=== PATIENT | male | born 1975 | race Caucasian/White ===

== ENCOUNTER 2024-12-15 10:15 | Outpatient (CLI) | payer SELFPAY ==
--- NOTE | ~2024-12-15 | XR_ITS ---
[id number], XR thoracic spine 2V 12/15/2024 11:02 Indication: Back pain Procedure: 4 views cervical spine and 4 views thoracic spine Comparison: No prior studies for comparison. Findings: No fracture or traumatic malalignment. No prevertebral or paraspinal soft tissue. There is levoscoliosis centered in the upper thoracic spine at approximately T4-5. Impression: 1: No acute abnormality of the cervical or thoracic spine. 2: Mild levoscoliosis of the cervicothoracic spine. Reviewed, dictated and finalized at location A. Impression: 1: No acute abnormality of the cervical or thoracic spine. 2: Mild levoscoliosis of the cervicothoracic spine. Impression: 1: No acute abnormality of the cervical or thoracic spine. 2: Mild levoscoliosis of the cervicothoracic spine.
== END 2024-12-15 10:16 | disposition home or self-care (01) ==
PROVIDERS: PCP Chiropractor; Visit Provider Chiropractor
DX: M41.83 Other forms of scoliosis, cervicothoracic region (principal)
CPT/HCPCS: 72040; 72070

== ENCOUNTER 2025-03-24 13:28 | Emergency (ER) | payer SELFPAY ==
--- NOTE | ~2025-03-24 | XR_ITS ---
Clinical history:Laceration EXAM:X-ray finger first left minimum 2 views TECHNIQUE:3 images of the left thumb were obtained. Comparisons:None available FINDINGS: Bandage material is present which limits evaluation. Displaced fractures of the distal third of the thumb with adjacent soft tissue swelling. There are a few tiny radiodensities in the soft tissues adjacent to the tuft of the thumb which may represent tiny fractures, however, radiopaque foreign bodies are possible. Tiny minimally displaced avulsion fracture of the base of the distal phalanx of the thumb. IMPRESSION: 1.Displaced fractures of the distal third of the thumb with adjacent soft tissue swelling. There are a few tiny radiodensities in the soft tissues adjacent to the tuft of the thumb which may represent tiny fractures, however, radiopaque foreign bodies are possible. 2.Tiny minimally displaced avulsion fracture of the base of the distal phalanx of the thumb. Reviewed, dictated and finalized at location Q. ITALIST IMPRESSION: 1.Displaced fractures of the distal third of the thumb with adjacent soft tissu e swelling. There are a few tiny radiodensities in the soft tissues adjacent to the tuft of the thumb which may represent tiny fractures, however, radiopaque foreign bodies are possible. 2.Tiny minimally displaced avulsion fracture of the base of the distal phalanx of the thumb.
[2025-03-24 13:28] VITALS: BP 240/138; PULSE 102; RESP 20; TEMP 36.6; O2SAT 99
--- NOTE | 2025-03-24 14:52 | ED_ITS ---
HPI - Wound/Laceration General Chief Complaint: Wound/Laceration <Chacha Wang PA-C - Last Filed: 03/25/25 10:20> Stated Complaint: thumb lac <COLE Clancy Last Filed: 03/25/25 10:20> Time Seen by Provider: 03/24/25 14:53 <Chacha Wang PA-C - Last Filed: 03/25/25 10:20> Focused HPI: This is a 49 year old male that presents to the ER for laceration to the left 5th finger. Sustained via table saw just prior to arrival. . Reports he is up to date on tetanus. GENERAL: Well-appearing, well-nourished, and in no acute distress. HEAD: Normocephalic, atraumatic. CHEST: Clear to auscultation. ?No respiratory distress. HEART: Regular rate and rhythm.? NEURO: ?Alert and oriented x3. Patient screened in triage and initial orders placed.? ?Additional care and disposition to be based upon?diagnostic testing and treatment. <Chacha Wang PA-C - Last Filed: 03/25/25 10:20> History of Present Illness HPI narrative: Agree with HPI. <Andre Taylor DO - Last Filed: 03/24/25 22:42> Related Data Allergies/Adverse Reactions: Allergies Allergy/AdvReac Type Severity Reaction Status Date / Time amoxicillin AdvReac Intermediate Hives Verified 03/24/25 16:21 <Chacha Wang PA-C - Last Filed: 03/25/25 10:20> Review of Systems Review of Systems: Gen.: Denies fevers or chills Eyes: Denies eye pain or visual change ENT: Denies congestion Respiratory: Denies shortness of breath or cough CV: Denies chest pain or palpitations GI: Denies abdominal pain nausea, emesis or diarrhea denies burning, urgency, frequency or hematuria Musculoskeletal: Denies back pain or muscle pain Neuro: Denies numbness, tingling, weakness or focal weakness Skin: Denies rash Except as documented, all other systems reviewed and negative <Andre Taylor DO - Last Filed: 03/24/25 22:42> Exam Narrative: APPEARANCE: No acute distress, nontoxic, resting in bed HEENT: Normocephalic, atraumatic, OMM RESPIRATORY: No respiratory distress CARDIOVASCULAR: Appears well perfused ABDOMINAL: Nondistended MUSCULOSKELETAl: 3 cm laceration to the distal 3rd of the left thumb that begins on the palmar aspect of the thumb and wraps to the lateral nail bed, bleeding controlled at this time. Neurovascularly intact. There is moderate amount of swelling NEURO: Awake and alert. SKIN:: Warm, dry. As above. PSYCHIATRIC: Normal affect/mood, <DO Shabnam Mann Last Filed: 03/24/25 22:42> Course Vital Signs Vital signs: Vital Signs Temperature 97.8 F 03/24/25 13:28 Pulse Rate 102 H 03/24/25 13:28 Respiratory Rate 20 03/24/25 13:28 Blood Pressure 240/138 H 03/24/25 13:28 Pulse Oximetry 99 03/24/25 13:28 Oxygen Delivery Room Air 03/24/25 13:28 Temperature 98.0 F 03/24/25 16:20 Pulse Rate 95 03/24/25 16:20 Respiratory Rate 18 03/24/25 16:20 Blood Pressure 240/150 H 03/24/25 16:20 Pulse Oximetry 100 03/24/25 16:20 Oxygen Delivery Room Air 03/24/25 16:07 <Chacha Wang PA-C - Last Filed: 03/25/25 10:20> Vital Signs Temperature 97.8 F 03/24/25 13:28 Pulse Rate 102 H 03/24/25 13:28 Respiratory Rate 20 03/24/25 13:28 Blood Pressure 240/138 H 03/24/25 13:28 Pulse Oximetry 99 03/24/25 13:28 Oxygen Delivery Room Air 03/24/25 13:28 Temperature 98.0 F 03/24/25 16:20 Pulse Rate 95 03/24/25 16:20 Respiratory Rate 18 03/24/25 16:20 Blood Pressure 240/150 H 03/24/25 16:20 Pulse Oximetry 100 03/24/25 16:20 Oxygen Delivery Room Air 03/24/25 16:07 <DO Shabnam Mann Last Filed: 03/24/25 22:42> Procedures Laceration Laceration 1: Date: 03/24/25 <DO Shabnam Mann Last Filed: 03/24/25 22:42> Time: 16:00 <Andre Taylor Last Filed: 03/24/25 22:42> Site: hand <Andre Taylor Last Filed: 03/24/25 22:42> Side (If applicable): left <Andre Taylor Last Filed: 03/24/25 22:42> Size (cm): 3 <Andre Taylor Last Filed: 03/24/25 22:42> Description: linear <Andre Taylor Last Filed: 03/24/25 22:42> Depth: simple, single layer <Andre Taylor Last Filed: 03/24/25 22:42> Local Anesthetic: lidocaine 2% <Andre Taylor Last Filed: 03/24/25 22:42> Amount of anesthesia used (mL): 5 <Andre Taylor Last Filed: 03/24/25 22:42> Pre-repair: irrigated <Andre Taylor Last Filed: 03/24/25 22:42> ====== Skin Level ======: Skin layer closed with: prolene <Andre Taylor Last Filed: 03/24/25 22:42> Size (cm): 5-0 <Andre Taylor Last Filed: 03/24/25 22:42> Number of sutures: 5 <Andre Taylor Last Filed: 03/24/25 22:42> Technique: simple, interrupted (Loosely approximated) <Andre Taylor Last Filed: 03/24/25 22:42> ====== Subcutaneous Layer ======: ====== Muscle Layer ======: ====== Tendon Layer ======: Nerve Block Nerve Block 1: Nerve block date: 03/24/25 <Andre Taylor Last Filed: 03/24/25 22:42> Nerve block time: 16:00 <Andre Taylor Last Filed: 03/24/25 22:42> Local Anesthetic: lidocaine 2% <Andre Taylor, DO - Last Filed: 03/24/25 22:42> Amount of anesthesia used (mL): 5 <Andre Taylor, DO - Last Filed: 03/24/25 22:42> Side: left <Andre Taylor - Last Filed: 03/24/25 22:42> Nerve Blocks: digital <Andre Taylor - Last Filed: 03/24/25 22:42> Procedure Successful: Yes <Andre Naranjoefra - Last Filed: 03/24/25 22:42> Patient Tolerated Procedure: well <Andre Taylor, DO - Last Filed: 03/24/25 22:42> Complications: none <Andre Taylor, - Last Filed: 03/24/25 22:42> MDM - Wound/Laceration MDM Narrative Medical decision making narrative: 49-year-old male Presenting for left thumb injury after cutting it with a table saw. On initial evaluation patient was in no acute distress afebrile. Patient noted to be hypertensive at 250/150. Differentials include but are not limited to: Vascular injury, nerve injury, fracture, laceration Notable exam findings: 3 cm laceration to the left thumb with involvement of the nailbed Notable imaging findings: X-ray left hand revealed displaced fracture of the distal 3rd of the thumb with adjacent soft tissue swelling as well as a few tiny radiodensities in the soft tissues that could represent tiny fractures versus foreign bodies. Also a noted tiny minimally displaced avulsion fracture of the base of the distal phalanx of the thumb Patient does note that he experiences white coat hypertension. He was asymptomatic from a hypertension standpoint, had no headache, chest pain, shortness of breath, abdominal pain. Patient noted to be updated on Tdap. Given the extent of the injury, patient would benefit from Hand surgery evaluation. I Spoke with Dr. Castro, hand surgery resident at [facility], discussed with Attending Dr. Norris who will accept the patient in ED to ED transfer, recommends placing some loose nylon sutures and placing in a thumb spica splint. Laceration was loosely approximated as above, patient tolerated procedure well. Splint was placed by the emergency department truck service technician under my supervision. Patient was given Ancef IM. The patient was neurovascularly intact both pre-and post procedure. Patient was transferred to the [facility] ED in a stable condition by POV. <Andre Taylor - Last Filed: 03/24/25 22:42> Medical Records Attestation: I reviewed the patient's medical records. <Andre Taylor Last Filed: 03/24/25 22:42> Imaging Data Attestation: I personally reviewed and interpreted this imaging study as follows: <Andre Walkercasey Last Filed: 03/24/25 22:42> Radiologist's impression: Impressions Finger X-Ray 03/24/25 15:15 IMPRESSION: 1.Displaced fractures of the distal third of the thumb with adjacent soft tissue swelling. There are a few tiny radiodensities in the soft tissues adjacent to the tuft of the thumb which may represent tiny fractures, however, radiopaque foreign bodies are possible. 2.Tiny minimally displaced avulsion fracture of the base of the distal phalanx of the thumb. <Andre Taylor Last Filed: 03/24/25 22:42> Discharge Plan Discharge Clinical Impression: Open fracture of left thumb, Contact with powered saw as cause of accidental injury, Laceration, Nailbed laceration, finger <Chacha Wang PA-C - Last Filed: 03/25/25 10:20> Patient Disposition: Acute [facility] Hospital <Chacha aWng PA-C - Last Filed: 03/25/25 10:20> Condition: Stable <Chacha Wang PA-C - Last Filed: 03/25/25 10:20> Patient Language: Yi <COLE Clanyc Last Filed: 03/25/25 10:20> Follow-up/Referrals: Desean,Bill Tang DC, [facility] [Primary Care Provider] <COLE Clancy Last Filed: 03/25/25 10:20>
[2025-03-24 16:07] VITALS: BP 240/150; PULSE 95; RESP 18; TEMP 36.7; O2SAT 100
[2025-03-24 16:20] VITALS: BP 240/150; PULSE 95; RESP 18; TEMP 36.7; O2SAT 100
[2025-03-24] MEDS: WATER, STERILE FOR INJECTION 10 ML VIAL XX (18:52)
--- OUTSIDE RECORDS SUMMARY | 2025-03-25 00:42 | XMS_ITS | Encounter Summary ---
Author Organization [facility] Healthcare Address [address] [place] [address] Care Team Providers Care Utility Helicopter Repairer Name Role Phone No, Physician Primary Care Provider [phone] Reason for Visit * Reason Comments Hand Injury Encounter Details Date Type Department Care Team ([facility] st Contact Info) Description 03/25/2025 12:42 AM MOLD RUNNER - 03/25/2025 3:07 AM MOLD RUNNER Emergency [facility] Emergency Department [address] [place] [address] Kim Min MD [address] [place] [address] Open displaced fracture of distal phalanx of left thumb, initial encounter (Primary Dx); Hypertension, unspecified type Discharge Disposition: Discharge to home or self care Social History Tobacco Use Types Packs/Day Years Used Date Smoking Tobacco: Never Assessed Personal Safety Answer Date Recorded Have you ever been in or are you currently in a harmful physical or emotional relationship or is someone making you feel afraid or unsafe? Denies 03/24/2025 Sex and Gender Information Value Date Recorded Sex Assigned at Not on file Legal Sex Male 11:46 AM CDT Gender Identity Not on file Sexual Orientation Not on file documented as of this encounter Last Filed Vital Signs Vital Sign Reading Time Taken Comments Blood Pressure 212/122 03/25/2025 3:06 AM MOLD RUNNER Pulse 75 03/25/2025 3:06 AM MOLD RUNNER Temperature 36.7 C (98 F) 03/24/2025 8:00 PM MOLD RUNNER Respiratory Rate 18 03/24/2025 8:00 PM MOLD RUNNER Oxygen Saturation 100% 03/25/2025 3:06 AM MOLD RUNNER Inhaled Oxygen Concentration - - Weight 106.6 kg (235 lb) 03/24/2025 8:00 PM MOLD RUNNER Height 188 cm (6' 2) 03/24/2025 8:00 PM MOLD RUNNER Body Mass Index 30.17 03/24/2025 8:00 PM MOLD RUNNER documented in this encounter Functional Status * Fall Risk Assessment Tool - MEDFRAT Question Answer Date of Assessment Author Prior Fall Event (Autopopulated from EMR) None found 03/24/2025 8:03 PM Shaquille Stevens RN History of falling in last 3 months, including since admission 0 03/24/2025 8:03 PM Alexus Stevens RN Confusion or disorientation 0 03/24/2025 8: 03 PM Aelxus Stevens RN Intoxicated or sedated 0 03/24/2025 8:03 PM Alexus Stevens RN Impaired gait 0 03/24/2025 8:03 PM Alexus Pelletier RN Mobility assist device used 0 03/24/2025 8: 03 PM Alexus Stevens RN Altered elimination 0 03/24/2025 8:03 PM CS Alexus Silva RN Fall risk score: (1-2 low risk), (3-4 moderate risk), (5 or more high risk) 0 03/24/2025 8:03 PM Alexus Stevens RN documented as of this encounter Discharge Instructions * Discharge Instructions* Kim Min MD - 03/25/2025 1:59 AM MOLD RUNNER You were seen tonight for a thumb fracture and overlying laceration. This is repaired by a plastic surgeon. Please keep the splint in place and keep your hand elevated. If you have worsening pain notcontrolled with medications prescribed, any fever or chills, redness extending down in the wrist, or any noted drainage, please call the Plastic surgery Clinic or return to the emergency department. You are also noted to be very hypertensive in the emergency department. I have prescribed you a medication called amlodipine which should reduce your blood pressure for the next several days. It is critical that you follow up with the primary care physician and monitor your blood pressure at home anterior able to do so. Please continue to take this medication as prescribed. Do not take this medication if your blood pressure is less than 120 systolic (top number). RUNNER documented in this encounter Medications at Time of Discharge amLODIPine (NORVASC) 10 mg tablet Take 1 tablet (10 mg total) by mouth daily 30 tablet 1 03/25/2025 03/25/2026 oxyCODONE (ROXICODONE) 5 mg immediate release tabletIndications :Pain Take 1 tablet (5 mg total) by mouth every 4 (four) hours as needed for pain 8 tablet 03/25/2025 sulfamethoxazole- trimethoprim (BACTRIM) 800-160 mg per tablet Take 2 tablets by mouth 2 (two) times a day for 7 days 28 tablet 03/25/2025 04/01/2025 documented as of this encounter Ordered Prescriptions Prescription Sig Dispense Quantity Refills Last Filled Start Date End Date sulfamethoxazole-t rimethoprim (BACTRIM) 800-160 mg per tablet Take 2 tablets by mouth 2 (two) times a day for 7 days 28 tablet 03/25/2025 5 oxyCODONE (ROXICODONE) 5 mg immediate release tabletIndications: Pain Take 1 tablet (5 mg total) by mouth every 4 (four) hours as needed for pain 8 tablet 03/25/2025 amLODIPine (NORVASC) 10 mg tablet Take 1 tablet (10 mg total) by mouth daily 30 tablet 1 03/25/2025 6 amLODIPine (NORVASC) 10 mg tablet Take 1 tablet (10 mg total) by mouth daily 30 tablet 03/25/2025 5 oxyCODONE (ROXICODONE) 5 mg immediate release tabletIndications: Pain Take 1 tablet (5 mg total) by mouth every 4 (four) hours as needed for pain 8 tablet 03/25/2025 5 sulfamethoxazole-t rimethoprim (BACTRIM) 800-160 mg per tablet Take 2 tablets by mouth 2 (two) times a day for 7 days 28 tablet 03/25/2025 5 documented in this encounter Discharge Disposition Disposition Code Departure Means Destination Comment s Discharge to home or self care documented in this encounter Consult Notes * Jaden Perez MD - 03/25/2025 3:03 AM CSTAssociated Order(s): IP CONSULT TO PLASTIC SURGERY Plastic Surgery Consult - HAND March 25, 2025 3:03 AM Reason for Consult: left thumb open fx from table saw Requesting Provider: ED Patient (home) Subjective Gilberto Kramer is a 49 y.o. male with chief complaint of LEFT thumb open distal phalanx fx. HPI: 49M RHD s/p table saw injury to L thumb with hand XR: Left thumb distal phalanx fracture with intact radial cortex. Seen at OSH and transferred to [facility] after washout and suture approximation. Hemostatic on arrival. BP elevated to 200s during examination. PMH: untreated HTN, no relevant PSH. SH: nonsmoker, social EtoH, works as contractor. No past medical history on file. No past surgical history on file. Prior to Admission medications Medication Sig Start Date End Date Taking? Authorizing Provider amLODIPine (NORVASC) 10 mg tablet Take 1 tablet (10 mg total) by mouth daily 03/25/25 03/25/26 Kim Min MD oxyCODONE (ROXICODONE) 5 mg immediate release tablet Take 1 tablet (5 mg total) by mouth every 4 (four) hours as needed for pain 03/25/25 Kim Min MD sulfamethoxazole-trimethoprim (BACTRIM) 800-160 mg per tablet Take 2 tablets by mouth 2 (two) timesa day for 7 days 03/25/25 04/01/25 Kim Min MD No Known Allergies Social History Tobacco Use Smoking status: Not on file Smokeless tobacco: Not on file Substance and Sexual Activity Drug use: Not on file Sexual activity: Not on file Alcohol Use: Not on file No family history on file. Review of Systems: As per HPI, otherwise 10 point review of systems negative Objective Vitals: 24hr Min/Max: Temp Min: 36.7 ??C (98 ??F) Max: 36.7 ??C (98 ??F) Pulse Min: 74 Max: 97 BP Min: 226/130 Max: 252/151 Resp Min: 18 Max: 18 SpO2 Min: 97 % Max: 100 % Most Recent: Vitals: 03/24/25200403/24/25 2201 03/24/25 2345 03/25/25 0215 BP: (!) 240/150 (!) 248/148 (!) 252/151 (!) 226/130 Pulse: 82 85 74 Resp: Temp: TempSrc: SpO2: 98% 98% 100% Weight: Height: Physical Exam: General: NAD, alert Respiratory: Nonlabored breathing on RA LUE: LEFT thumb with 4cm volar laceration approximated with prolene sutures. Thumb WWP, cap refill 2 sec. Fires EPL, FPL, APL. Palpable radial/ulnar arteries. Flexion/Extension/Intrinsics intact. SILT median/ulnar/radial. Lab/Radiology/Diagnostic Review: Laboratory review: Lab results in the last 24 hours: No results found for this or any previous visit (from the past 24 hours). Imaging review: I have independently examined the XR image(s). My findings are Left thumb distal phalanx fracture with intact radial cortex Assessment /Plan Gilberto Kramer is a 49 y.o. male who presented with L distal thumb open fracture. PROCEDURE: After documentation of risks and benefits and informed consent, a digital block was performed and the left thumb laceration was irrigated with 1L NS/betadine. The prolene sutures were cut and the lac was reapproximated with 4- 0 monocryl. Xeroform was applied and the thumb was placed in afinger splint. The procedure was well tolerated. PLAN: Nonoperative OK to DC per PRS Bactrim 7d Maintain dressing for 48h, then begin daily hand washing with dressing changes. Maintain splint Elevate left upper extremity NWB left upper extremity Follow up with Plastic Surgery in 1 weeks at [facility], [address]- call [phone] to schedule Jaden Perez MD Discussed with Dr. You, senior resident. If you have questions, please check Amion to find the resident responsible for this patient's care.If uncertain, please call: Saturday-Saturday from 7AM - 5PM please call [phone], , or [phone]. If still unsuccessful, please check CÜR (username OSBALDO) to find the appropriate resident contact. If both are unsuccessful, call [phone] to be directed to the correct Plastic Surgery resident. Weeknights 5PM - 7AM, All day on Weekends, All day on Holidays please call the Sport Intern to find theOn Call Plastic Surgery resident. Cosigned by Alessia Norris MD at 03/25/2025 10:04 AM MOLD RUNNER RUNNER RUNNER documented in this encounter ED Notes * Alexus Law RN - 03/24/2025 8:00 PM CST Pt to ED as level 3 transfer from [facility]. Pt has injury to L thumb from tablesaw. Pt arrives with splint placed at OSH. Pt given Ancef VENUE COORDINATOR. GCS 15. RUNNER documented in this encounter Miscellaneous Notes * ED Pre-Arrival Note - Nancy Carballo RN - 03/24/2025 6:45 PM MOLD RUNNER Pre-Arrival Note Transfering Facility: [facility] Transferring Provider: Claudia SCHUSTER Speciality/Provider Requesting ED to ED Trasnfer: Plastics/Hand - MD Handy Mcneal Reason for Transfer: open fracture HPI: Pt to ED with tablesaw injury to L thumb distal 3rd phalanx. OSH stitched so that segments would stay together and placed in thumb spica per hand . MD Red requesting ancef to be given before departure. Accepting [facility] ED Provider: Teofilo SCHUSTER Accepted Trauma Level: 3 Nancy Carballo RN RUNNER documented in this encounter Plan of Treatment Not on file documented as of this encounter Procedures Procedure Name Priority Date/Time Associated Diagnosis Comments XR HAND LEFT 3 OR MORE VIEWS ED 03/25/2025 12:27 AM MOLD RUNNER documented in this encounter Results * XR Hand Left 3 or More Views (03/25/2025 12:27 AM MOLD RUNNER) Anatomical Region Laterality Modality Upper Extremities, Hand Left Computed Radiography 03/25/2025 12:3 0 AM MOLD RUNNER Impressions 03/25/2025 9:39 AM MOLD RUNNER FINDINGS/IMPRESSION: Acute open comminuted displaced left 1st distal phalanx tuft fracture. Overlying soft tissue swelling. Preserved joint spaces. No retained radiopaque foreign body. Dictated by: Hyun Harley MD The radiology attending physician has personally reviewed this study, and had reviewed and/or edited this written report and agrees with it. Electronically signed by: James Shields M.D. Narrative 03/25/2025 9:39 AM MOLD RUNNER EXAMINATION: XR HAND LEFT 3 OR MORE VIEWS HISTORY: Table saw injury COMPARISON: None available. Procedure Note James Shields MD - 03/25/2025 EXAMINATION: XR HAND LEFT 3 OR MORE VIEWS HISTORY: Table saw injury COMPARISON: None available. IMPRESSION: FINDINGS/IMPRESSION: Acute open comminuted displaced left 1st distal phalanx tuft fracture. Overlying soft tissue swelling. Preserved joint spaces. No retained radiopaque foreign body. Dictated by: Hyun Harley MD The radiology attending physician has personally reviewed this study, and had reviewed and/or edited this written report and agrees with it. Electronically signed by: James Shields M.D. Kim Min MD IMG XR PROCEDURES Fin al Result documented in this encounter Visit Diagnoses Diagnosis Open displaced fracture of distal phalanx of left thumb, initial encounter- Primary Hypertension, unspecified type documented in this encounter Administered Medications Inactive Administered Medications - up to 3 most recent administrations Medication Order MAR Action Action Date Dose Rate Site amLODIPine (NORVASC) tablet 10 mg 10 mg, oral, Once, On Brisa 03/25/25 at 0157, For 1 dose Given 03/25/2025 2:15 AM MOLD RUNNER 10 mg bacitracin 500 unit/gram ointment packet 1 Application 1 Application, topical, Once, On Brisa 03/25/25 at 0155, For 1 dose, Apply to affected area: wound Given 03/25/2025 2:45 AM MOLD RUNNER 1 Application lidocaine (XYLOCAINE) 10 mg/mL (1 %) injection 100 mg 100 mg (10 mL), subcutaneous, Once, On Brisa 03/25/25 at 0208, For 1 dose, Indications: Administration of Local AnesthesiaIndications: Administration of Local Anesthesia Given 03/25/2025 2:45 AM MOLD RUNNER 100 mg Other (Comment) oxyCODONE (ROXICODONE) tablet 5 mg 5 mg, oral, Once, On Brisa 03/25/25 at 0112, For 1 dose, Indications: PainIndications:Pain Given 03/25/2025 1:22 AM MOLD RUNNER 5 mg sulfamethoxazole-trime thoprim (BACTRIM) per tablet 320 mg of trimethoprim 320 mg of trimethoprim, oral, Once, On Brisa 03/25/25 at 0155, For 1 dose, Indications: Skin/Soft Tissue InfectionIndications:S kin/Soft Tissue Infection Given 03/25/2025 2:15 AM MOLD RUNNER 320 mg of trimethoprim documented in this encounter Discontinued Medications Medication Sig Discontinue Reason Start Date End Da te sulfamethoxazole-trimeth oprim (BACTRIM) 800-160 mg per tablet Take 2 tablets by mouth 2 (two) times a day for 7 days 03/25/2025 03/25/2025 oxyCODONE (ROXICODONE) 5 mg immediate release tabletIndications:Pain Take 1 tablet (5 mg total) by mouth every 4 (four) hours as needed for pain 03/25/2025 03/25/2025 amLODIPine (NORVASC) 10 mg tablet Take 1 tablet (10 mg total) by mouth daily 03/25/2025 03/25/2025 documented as of this encounter Active and Recently Administered Medications Times are shown in MOLD RUNNER. Scheduled Medication Order 03/23/2025 03/24/2025 03/25/2025 amLODIPine (NORVASC) tablet 10 mg (COMPLETED) 10 mg, oral, Once, On Brisa 03/25/25 at 0157, For 1 dose 0215 (Given - Provid er: Tootie Alcala RN) bacitracin 500 unit/gram ointment packet 1 Application (COMPLETED) 1 Application, topical, Once, On Brisa 03/25/25 at 0155, For 1 dose, Apply to affected area: wound 0245 (Given - Provid er: Tootie Alcala RN) lidocaine (XYLOCAINE) 10 mg/mL (1 %) injection 100 mg (COMPLETED) 100 mg (10 mL), subcutaneous, Once, On Brisa 03/25/25 at 0208, For 1 dose, Indications: Administration of Local Anesthesia 0245 (Given - Provid er: Tootie Alcala RN) oxyCODONE (ROXICODONE) tablet 5 mg (COMPLETED) 5 mg, oral, Once, On Brisa 03/25/25 at 0112, For 1 dose, Indications: Pain 0122 (Given - Provid er: Tootie Alcala RN) sulfamethoxazole-trimethoprim (BACTRIM) per tablet 320 mg of trimethoprim (COMPLETED) 320 mg of trimethoprim, oral, Once, On Brisa 03/25/25 at 0155, For 1 dose, Indications: Skin/Soft Tissue Infection 0215 (Given - Provid er: Tootie Alcala RN) documented in this encounter Orders Consult Count Last Ordered Date First Orde red Date IP CONSULT TO PLASTIC SURGERY 1 03/25/2025 documented in this encounter Care Teams Utility Helicopter Repairer Relationship Specialty Start Date End Date No, Physician PCP - General 10/23/21 documented as of this encounter
--- OUTSIDE RECORDS SUMMARY | 2025-03-25 12:37 | XMS_ITS | Clinical Summary ---
Author Organization [facility] Address [address] [place] [address] Care Team Providers Care Industrial Rehabilitation Consultant Name Role Phone Unavailable Primary Care Provider Unavailabl e Source Comments [facility],non-owned Affiliates and Associated Physician Practices is amultiple site organization consisting of ambulatory clinics and hospital sitesin [place], [place], [place] and [place]. This disclosure is being madepursuant to the Care Everywhere program and may not contain all information available regarding this patient. Last updated 18.[facility] Social History Tobacco Use Types Packs/Day Years Used Date Smoking Tobacco: Never Assessed Sex and Gender Information Value Date Recorded Sex Assigned at Not on file Legal Sex Male 10:44 AM CDT Gender Identity Not on file Sexual Orientation Not on file Plan of Treatment Health Maintenance Due Date Last Done Comments COLOGUARD (AGES 45-75) - COL ON CA SCREENING 1973 COLON MONITORING 1973 COLONOSCOPY - COLON CA SCREENING 1973 CT COLONOGRAPHY - COLON CA SCREENING 1973 Colorectal Cancer Screening 1973 FIT - COLON CA SCREENING 1973 FLEX SIG - COLON CA SCREENING 1973 LIPID TESTING 1973 HIV SCREENING 1988 HEPATITIS C SCREENING 04/24/1991 DTAP/TDAP/TD VACCINES (1 - Tdap) 1992 HEPATITIS B VACCINE (1 of 3 - 19+ 3-dose series) 1992 PNEUMOCOCCAL VACCINE 50+ (1 of 1 - PCV) 2023 ZOSTER VACCINE (1 of 2) 2023 DEPRESSION SCREENING 05/20/2024 COVID-19 VACCINE (1 - 2023-2 5 season) 2025 INFLUENZA VACCINE (#1) 2025 HIB VACCINE Aged Out No longer eligi ble based on patient's age to complete this topic HPV VACCINE Aged Out No longer eligi ble based on patient's age to complete this topic MENINGOCOCCAL (Group B) VACC INE SHARED DECISION-MAKING Aged Out No longer eligibl e based on patient's age to complete this topic MENINGOCOCCAL GROUPS A/C/Y/W VACCINE Aged Out No longer eligible b ased on patient's age to complete this topic
--- OUTSIDE RECORDS SUMMARY | 2025-03-25 15:15 | XMS_ITS | Clinical Summary ---
[facility] Address [address] [place] [address] Care Team Providers Care Supervisor Transferring And Boxing Name Role Phone No, Physician Primary Care Provider [phone] Allergies No known active allergies Medications amLODIPine (NORVASC) 10 mg tablet Take 1 tablet (10 mg total) by mouth daily 30 tablet 1 5 03/25/20 26 Active oxyCODONE (ROXICODONE) 5 mg immediate release tabletIndicati ons:Pain Take 1 tablet (5 mg total) by mouth every 4 (four) hours as needed for pain 8 tablet 5 Active sulfamethoxazo le-trimethopri m (BACTRIM) 800-160 mg per tablet Take 2 tablets by mouth 2 (two) times a day for 7 days 28 tablet 5 04/01/20 25 Active sulfamethoxazo le-trimethopri m (BACTRIM) 800-160 mg per tablet Take 2 tablets by mouth 2 (two) times a day for 7 days 28 tablet 5 03/25/20 25 Discontinued oxyCODONE (ROXICODONE) 5 mg immediate release tabletIndicati ons:Pain Take 1 tablet (5 mg total) by mouth every 4 (four) hours as needed for pain 8 tablet 5 03/25/20 25 Discontinued amLODIPine (NORVASC) 10 mg tablet Take 1 tablet (10 mg total) by mouth daily 30 tablet 5 03/25/20 25 Discontinued Encounters Date Type Department Care Team Description 03/25/2025 12:42 AM BAKER TEST - 03/25/2025 3:07 AM BAKER TEST Emergency [facility] Emergency Department [address] [place] [address] Kim Min MD Open displaced fracture of distal phalanx of left thumb, initial encounter (Primary Dx); Hypertension, unspecified type Discharge Disposition: Discharge to home or self care from Last 3 Months Social History Tobacco Use Types Packs/Day Years [...] on file Sexual Orientation Not on file Last Filed Vital Signs Vital Sign Reading Time Taken Comments Blood Pressure 212/122 03/25/2025 3:06 AM BAKER TEST Pulse 75 03/25/2025 3:06 AM BAKER TEST Temperature 36.7 C (98 F) 03/24/2025 8:00 PM BAKER TEST Respiratory Rate 18 03/24/2025 8:00 PM BAKER TEST Oxygen Saturation 100% 03/25/2025 3:06 AM BAKER TEST Inhaled Oxygen Concentration - - Weight 106.6 kg (235 lb) 03/24/2025 8:00 PM BAKER TEST Height 188 cm (6' 2) 03/24/2025 8:00 PM BAKER TEST Body Mass Index 30.17 03/24/2025 8:00 PM BAKER TEST Plan of Treatment Health Maintenance Due Date Last Done Comments Colon Cancer Screening-Colonoscopy 1973 Depression Screening 1973 Hepatitis C Screening 1973 Prostate Cancer Screening-PSA 1973 Hepatitis B Screening 1991 Regular Well Visit/Exam 18-64 1991 Zoster Vaccine (1 of 2) 2023 Influenza Vaccine (#1) 2025 DTaP/Tdap/Td Vaccine (2 - Td or Tdap) 07/16/2027 07/16/2017 Pneumococcal vaccine <65 Aged Out No longer eligible based on patient's age to complete this topic Procedures Procedure Name Priority Date/Time Associated Diagnosis Comments XR HAND LEFT 3 OR MORE VIEWS ED 03/25/2025 12:27 AM BAKER TEST from Last 3 Months Results * XR Hand Left 3 or More Views (03/25/2025 12:27 AM BAKER TEST) Anatomical Region Laterality Modality Upper Extremities, Hand Left Computed Radiography 03/25/2025 12:3 0 AM BAKER TEST Impressions 03/25/2025 9:39 AM BAKER TEST FINDINGS/IMPRESSION: Acute open comminuted displaced left 1st distal phalanx tuft fracture. Overlying soft tissue swelling. Preserved joint spaces. No retained radiopaque foreign body. Dictated by: Hyun Harley MD The radiology attending physician has personally reviewed this study, and had reviewed and/or edited this written report and agrees with it. Electronically signed by: James Shields M.D. Narrative 03/25/2025 9:39 AM BAKER TEST EXAMINATION: XR HAND LEFT 3 OR MORE [...] MD IMG XR PROCEDURES Fin al Result from Last 3 Months Care Teams Supervisor Transferring And Boxing Relationship Specialty Start Date End Date No, Physician PCP - General 10/23/21
--- OUTSIDE RECORDS SUMMARY | 2025-03-25 15:15 | XMS_ITS | Clinical Summary ---
Author Organization [facility] Address [address] [place] [address] Care Team Providers Care Bead Picker Name Role Phone Unavailable Primary Care Provider Unavailabl e Source Comments [facility],non-owned Affiliates and Associated Physician Practices is amultiple site organization consisting of ambulatory clinics and hospital sitesin [place], [place], [place] and [place]. This disclosure is being madepursuant to the Care Everywhere program and may not contain all information available regarding this patient. Last updated 18.[facility] Social History Tobacco Use Types Packs/Day Years [...]
== END 2025-03-24 19:13 | disposition short-term general hospital (02) ==
LOC: ANHED 16:44
PROVIDERS: Emergency Provider Student in an Organized Health Care Education/Training Program; PCP Chiropractor
DX: S62.522B Displaced fracture of distal phalanx of left thumb, initial encounter for open fracture (principal); W31.2XXA Contact with powered woodworking and forming machines, initial encounter
CPT/HCPCS: 12001; 29125; 73140; 96372; 99284; J0690